=== PATIENT | female | born 2000 | race African-American/Black ===

== ENCOUNTER 2021-09-08 10:59 | Emergency (ER) | payer OTHER ==
[~2021-09-08] VITALS: Ht 162.6 cm; Wt 90.7 kg
[2021-09-08 11:14] VITALS: BP 124/78
[2021-09-08 12:06] LABS: BASOPHILS % (AUTO) 0.3 % (0.0-2.0); EOSINOPHILS % (AUTO) 0.3 % (0.0-4.0); HEMATOCRIT 36.3 % (36-48); HEMOGLOBIN 12.6 g/dL (12.0-16.0); LYMPHOCYTES # (AUTO) 1.8 K/uL (2.5-16.5); LYMPHOCYTES % (AUTO) 17.9 % (20.5-51.1); MEAN CORPUSCULAR HEMOGLOBIN 32 pg (27-31); MEAN CORPUSCULAR HGB CONC 35 g/dL (33-37); MEAN CORPUSCULAR VOLUME 92.3 fL (80-94); MONOCYTES # (AUTO) 0.4 K/uL (0.8-1.0); MONOCYTES % (AUTO) 4.4 % (1.7-9.3); NEUTROPHILS # (AUTO) 7.9 K/uL (1.8-7.7); NEUTROPHILS % (AUTO) 77.1 % (42.2-75.2); PLATELET COUNT (AUTO) 403 K/uL (140-450); RED BLOOD CELL COUNT(AUTO) 3.93 MIL/uL (4.20-5.40); RED CELL DISTRIBUTION WIDTH 12.9 % (11.6-13.7); WHITE BLOOD COUNT (AUTO) 10.2 K/uL (4.5-11.0)
[2021-09-08 12:18] LABS: PROTHROMBIN TIME 10.5 secs (10.8-13.4)
[2021-09-08 12:19] LABS: ALBUMIN 3.3 g/dL (3.4-5.0); ANION GAP 7.9 (8-16); CARBON DIOXIDE 29.1 mmol/L (21-32); CREATININE 0.9 mg/dL (0.6-1.3); TOTAL BILIRUBIN 0.4 mg/dL (0.0-1.0)
[2021-09-08] MEDS ORDERED: METR-435 PO (13:04)
[2021-09-08] MEDS ORDERED: METR0.752 VG (13:09)
--- NOTE | 2021-09-08 13:15 | NUR ---
NO NURSING INTERVENTIONS IMPLEMENTED
[2021-09-08 13:16] VITALS: BP 124/78
--- NOTE | 2021-09-08 13:16 | NUR ---
Patient discharged with v/s stable. Written and verbal after care instructions given and explained. Patient alert, oriented and verbalized understanding of instructions. Ambulatory with steady gait. All questions addressed prior to discharge. ID band removed. Patient advised to follow up with PMD. Rx of METRONIDAZOLE CREAM AND METRONIDAZOLE TAB given. Patient educated on indication of medication including possible reaction and side effects. Opportunity to ask questions provided and answered.
== END 2021-09-08 13:16 | disposition home or self-care (01) ==
LOC: MED 10:59
DX: N93.9 Abnormal uterine and vaginal bleeding, unspecified (principal); N76.0 Acute vaginitis; B96.89 Other specified bacterial agents as the cause of diseases classified elsewhere; Z79.2 Long term (current) use of antibiotics
CPT/HCPCS: 36415; 80053; 84702; 85025; 85610; 85730; 99283

== ENCOUNTER 2021-10-27 15:36 | Emergency (ER) | payer OTHER ==
[~2021-10-27] VITALS: Ht 162.6 cm; Wt 81.2 kg
[~2021-10-27 15:36] MED LIST: METR-435 PO; METR0.752 VG
[2021-10-27 16:01] VITALS: BP 130/74
[2021-10-27] MEDS ORDERED: HYDROcodone/APAP 5/325 MG 1 TAB TAB PO ONE (16:35)
[2021-10-27] MEDS ORDERED: KETOROLAC 30 MG/ML VIAL IM ONE (16:35)
[2021-10-27 17:00] LABS: BASOPHILS # (AUTO) 0.1 K/uL (0.00-0.22); BASOPHILS % (AUTO) 0.7 % (0.0-2.0); EOSINOPHILS % (AUTO) 0.3 % (0.0-4.0); HEMATOCRIT 38.5 % (36-48); HEMOGLOBIN 13.1 g/dL (12.0-16.0); LYMPHOCYTES # (AUTO) 2.7 K/uL (2.5-16.5); LYMPHOCYTES % (AUTO) 30.7 % (20.5-51.1); MEAN CORPUSCULAR HEMOGLOBIN 31 pg (27-31); MEAN CORPUSCULAR HGB CONC 34 g/dL (33-37); MEAN CORPUSCULAR VOLUME 91.4 fL (80-94); MONOCYTES # (AUTO) 0.4 K/uL (0.8-1.0); MONOCYTES % (AUTO) 5.1 % (1.7-9.3); NEUTROPHILS # (AUTO) 5.6 K/uL (1.8-7.7); NEUTROPHILS % (AUTO) 63.2 % (42.2-75.2); PLATELET COUNT (AUTO) 313 K/uL (140-450); RED BLOOD CELL COUNT(AUTO) 4.21 MIL/uL (4.20-5.40); RED CELL DISTRIBUTION WIDTH 13.1 % (11.6-13.7); WHITE BLOOD COUNT (AUTO) 8.8 K/uL (4.5-11.0)
[2021-10-27 17:07] LABS: BILIRUBIN,URINE 1+ (NEGATIVE); BLOOD, URINE NEGATIVE (NEGATIVE); COLOR,URINE YELLOW (YELLOW); LEUKOCYTE ESTERASE ,URINE 2+ (NEGATIVE); NITRITE, URINE NEGATIVE (NEGATIVE); UGLUCOSE NEGATIVE (NEGATIVE)
[2021-10-27 17:12] LABS: ALBUMIN 3.4 g/dL (3.4-5.0); ANION GAP 13.2 (8-16); CARBON DIOXIDE 26.2 mmol/L (21-32); CREATININE 0.8 mg/dL (0.6-1.3); POTASSIUM 3.4 mmol/L (3.5-5.1); TOTAL BILIRUBIN 0.8 mg/dL (0.0-1.0)
--- NOTE | 2021-10-27 17:29 | NUR ---
pt called for medication in lobby, no answer at this time
[2021-10-27 17:45] LABS: APPEARANCE,URINE HAZY (CLEAR)
[2021-10-27 17:50] LABS: RBC,URINE NONE SEEN /HPF (0-5); WBC,URINE TOO MANY TO COUNT /HPF (0-5)
[2021-10-27] MEDS ORDERED: NITR100C7 PO (19:17)
[2021-10-27] MEDS ORDERED: ACET-8386 PO (19:17)
[2021-10-27] MEDS ORDERED: NAPR-54 PO (19:17)
[2021-10-27] MEDS ORDERED: ONDANSETRON 4 MG ODT PO ONE (19:40)
[2021-10-27] MEDS ORDERED: KETOROLAC 30 MG/ML VIAL ONE (19:55)
[2021-10-27] MEDS ORDERED: HYDROcodone/APAP 5/325 MG 1 TAB TAB ONE (19:55)
[2021-10-27 20:04] VITALS: BP 130/74
--- NOTE | 2021-10-27 20:05 | NUR ---
Patient discharged with v/s stable. Written and verbal after care instructions given and explained. Patient verbalized understanding. Ambulatory with steady gait. All questions addressed prior to discharge. Advised to follow up with PMD.
== END 2021-10-27 20:03 | disposition home or self-care (01) ==
LOC: MED 15:36
DX: R10.2 Pelvic and perineal pain (principal); N39.0 Urinary tract infection, site not specified; R51.9 Headache, unspecified; Z79.899 Other long term (current) drug therapy
CPT/HCPCS: 36415; 76830; 80053; 81001; 81025; 84703; 85025; 87086; 96372; 99284; J1885; Q0092; Q0162

== ENCOUNTER 2023-05-27 02:15 | Emergency (ER) | payer OTHER ==
[~2023-05-27] VITALS: Ht 162.6 cm; Wt 86.2 kg
[~2023-05-27 02:15] MED LIST changes: +ACET-8905 PO; +NAPR-54 PO; +NITR100C7 PO
--- NOTE | 2023-05-27 02:16 | NUR ---
PT. MAXX REYES; PLACED IN BED 02
[2023-05-27 02:24] VITALS: BP 142/68; PULSE 80; RESP 14; TEMP 98.1; O2SAT 100
--- NOTE | 2023-05-27 02:33 | NUR ---
PROVIDED PT CUP FOR URINE, PT AMBULATED TO BATHROOM
--- NOTE | 2023-05-27 03:00 | NUR ---
PATIENT PRESENTS FROM HOME TO ED WITH C/O ABDOMINAL PAIN. PT STATES SHE HAD A CYST BEFORE AND HER PAIN IS SIMILAR BUT ALSO BELIEVES SHE COULD HAVE AN STD. DENIES N/V/D; SKIN IS WARM/DRY/NORMAL FOR ETHNICITY; AAOX4 WITH EVEN AND STEADY GAIT; HR EVEN AND REGULAR; PT DENIES ANY FEVER, CP, SOB, OR COUGH AT THIS TIME; PATIENT STATES PAIN OF 10/10 AT THIS TIME; VSS; PATIENT POSITIONED FOR COMFORT; HOB ELEVATED; BEDRAILS UP X2; BED DOWN. ER MD AWARE OF PT STATUS.
[2023-05-27] MEDS ORDERED: KETOROLAC 15 MG/ML VIAL IVP ONE (03:30)
[2023-05-27 03:37] LABS: BASOPHILS % (AUTO) 0.6 % (0.0-2.0); EOSINOPHILS # (AUTO) 0.1 K/uL (0-0.4); EOSINOPHILS % (AUTO) 1.2 % (0.0-4.0); HEMATOCRIT 30.1 % (36-48); HEMOGLOBIN 10.6 g/dL (12.0-16.0); LYMPHOCYTES # (AUTO) 3.4 K/uL (2.5-16.5); LYMPHOCYTES % (AUTO) 54.5 % (20.5-51.1); MEAN CORPUSCULAR HEMOGLOBIN 32 pg (27-31); MEAN CORPUSCULAR HGB CONC 35 g/dL (33-37); MEAN CORPUSCULAR VOLUME 90.5 fL (80-94); MONOCYTES # (AUTO) 0.3 K/uL (0.8-1.0); MONOCYTES % (AUTO) 5.2 % (1.7-9.3); NEUTROPHILS # (AUTO) 2.4 K/uL (1.8-7.7); NEUTROPHILS % (AUTO) 38.5 % (42.2-75.2); PLATELET COUNT (AUTO) 371 K/uL (140-450); RED BLOOD CELL COUNT(AUTO) 3.33 MIL/uL (4.20-5.40); RED CELL DISTRIBUTION WIDTH 12.7 % (11.6-13.7); WHITE BLOOD COUNT (AUTO) 6.2 K/uL (4.8-10.8)
[2023-05-27 03:52] LABS: ALBUMIN 2.9 g/dL (3.4-5.0); ANION GAP 10.5 (8-16); CARBON DIOXIDE 26.3 mmol/L (21-32); CREATININE 0.8 mg/dL (0.6-1.3); POTASSIUM 3.8 mmol/L (3.5-5.1); TOTAL BILIRUBIN 0.1 mg/dL (0.0-1.0)
[2023-05-27 04:40] LABS: APPEARANCE,URINE CLEAR (CLEAR); BILIRUBIN,URINE NEGATIVE (NEGATIVE); BLOOD, URINE NEGATIVE (NEGATIVE); COLOR,URINE YELLOW (YELLOW); LEUKOCYTE ESTERASE ,URINE NEGATIVE (NEGATIVE); NITRITE, URINE NEGATIVE (NEGATIVE); UGLUCOSE NEGATIVE (NEGATIVE)
--- NOTE | 2023-05-27 06:35 | NUR ---
Pt report given to cora Herrera. Transfer of care at this time.
[2023-05-27] MEDS ORDERED: cefTRIAXone 500 MG in LIDOCAINE MPF 1% 1 ML IM ONE (07:25)
[2023-05-27] MEDS ORDERED: ACET-8905 PO (07:28)
[2023-05-27] MEDS ORDERED: DOXY-690 PO (07:28)
[2023-05-27] MEDS ORDERED: NAPR-54 PO (07:28)
[2023-05-27 07:30] VITALS: O2SAT 98
--- NOTE | 2023-05-27 07:30 | NUR ---
RECEIVED REPORT FROM MARZENA IRWIN. PATIENT PRESENTS FROM HOME TO ED WITH C/O ABDOMINAL PAIN. PT STATES SHE HAD A CYST BEFORE AND HER PAIN IS SIMILAR BUT ALSO BELIEVES SHE COULD HAVE AN STD. DENIES N/V/D; SKIN IS WARM/DRY/NORMAL FOR ETHNICITY; AAOX4 WITH EVEN AND STEADY GAIT; HR EVEN AND REGULAR; PT DENIES ANY FEVER, CP, SOB, OR COUGH AT THIS TIME; PATIENT STATES PAIN OF 10/10 AT THIS TIME; VSS; PATIENT POSITIONED FOR COMFORT; HOB ELEVATED; BEDRAILS UP X2; BED DOWN. ER MD AWARE OF PT STATUS. PT STATES HER PAIN IS AT A THREE AND IS FEELING BETTER. PMHX OVARIAN CYST NKA
[2023-05-27] MEDS ORDERED: cefTRIAXone 500 MG VIAL ONE (07:38)
[2023-05-27] MEDS ORDERED: LIDOCAINE MPF 1% 5 ML ONE (07:38)
--- NOTE | 2023-05-27 08:03 | NUR ---
The patient's care was reviewed and supervised by Kory Yepez RN.
[2023-05-27 08:06] VITALS: BP 124/84; PULSE 70; RESP 14; TEMP 97.5; O2SAT 98
== END 2023-05-27 08:06 | disposition home or self-care (01) ==
LOC: MED 02:15
DX: N83.201 Unspecified ovarian cyst, right side (principal); F12.90 Cannabis use, unspecified, uncomplicated; Z79.899 Other long term (current) drug therapy; Z79.2 Long term (current) use of antibiotics; Z79.1 Long term (current) use of non-steroidal anti-inflammatories (NSAID)
CPT/HCPCS: 36415; 74177; 76856; 80053; 81003; 81025; 83690; 85025; 87491; 93976; 96372; 96374; 99285; J0696; J1885; J2001; Q0092; Q9967